=== PATIENT | female | born 1985 | race Caucasian/White ===

== ENCOUNTER 2024-02-05 15:43 | Emergency (ER) | payer OTHER, SELFPAY ==
[2024-02-05 15:43] VITALS: BP 148/101; BP 151/99; PULSE 67; PULSE 79; RESP 14; RESP 18; TEMP 36.3; O2SAT 100; BMI 37.8
--- NOTE | 2024-02-05 16:06 | EX.ED.UPPERE ---
HPI History of Present Illness Chief Complaint: Upper Extremity Injury Informant: patient Occured/Mechanism Mechanism/Context: Yes fall Onset/Context/Timing Onset: Today Context: Sudden Onset Timing: Continuous Quality of Pain: Aching Location: Left wrist Current Severity: Moderate Maximum Severity: Severe Worsened by: Moving Relieved by: Remaining still Associated Symptoms Associated Symptoms: Positive for Loss of Funtion; Negative for Parasthesia or Weakness Narrative Narrative: Patient states she was getting onto a stepstool to get something out of a high pantry/cabinet, she went to get down and the stool gave way, causing her to fall and injure her left wrist. She denies any other injuries. [id number]. [facility] Medical History (Updated 02/05/24 @ 17:[address] Fredrick Luke MD) Arm injury Distal radius fracture Medical History no medical history no medical history Home Medications sertraline 100 mg tablet 100 mg PO DAILY 02/05/24 [History Last Taken 02/05/24] Allergy/AdvReac Type Severity Reaction Status Date / Time No Known Allergies Allergy Verified 02/05/24 15:44 Social History Smoking Status: Never smoker ROS ROS ED Constitutional Constitutional ED: Denies chills or fever(s) Musculoskeletal Musculoskeletal: Reports extremity pain; Denies neck pain Integumentary Denies Abrasions, rash or wounds Neurologic Neurologic: Denies paresthesias or weakness EXAM Physical Exam Const Vital Signs: 02/05/24 15:43 02/05/24 15:43 Temperature 97.3 F L Temperature Source Temporal Pulse Rate 67 79 Respiratory Rate 14 18 Blood Pressure 148/101 H 151/99 H Blood Pressure Mean 116 116 Pulse Ox 100 100 Oxygen Delivery Method Room Air Room Air Positive well nourished and well developed General Appearance ED: well developed and NAD Neck full ROM and supple Back/Spine normal ROM and normal to inspection Extremity Extremity Narrative: Deformity left wrist, limited range of motion and diffusely tender. It is close there is no lacerations or bleeding. Able to wiggle fingers. All other joints nontender and full range. Neuro oriented x3, no focal motor deficits and no sensory deficits noted Sensorium / Orientation: alert Psych mental status grossly normal and thought process normal Skin no wounds Rashes: no rashes MDM MDM MDM Narrative Medical decision making narrative: See the procedure note, 3 view x-ray of the left wrist on my interpretation shows a grossly displaced closed distal radius fracture as well as an ulnar styloid fracture. There is no dislocation of the carpus. Perform hematoma block after giving the patient an oxycodone orally, and manual reduction. 2 view postreduction x-ray on my interpretation shows improvement. Given that it was not completely reduced, it is impacted and very difficult to move manually, I discussed with Dr. Tim with orthopedics, he reviewed the films and agrees that this is adequate enough to splint and follow-up in the office after the weekend. Management Discussion w/another healthcare provider: [employer] ([facility]yo orthopedicaleshia) Procedures Upper Extremity Splints Upper Extremity Splint: Orthoglass and - (AP short arm left upper extremity) Splint Fabrication: Fabricated Location: Left (Neurovascularly intact distally after placement, except for some paresthesias in median nerve distribution. Therefore splint manipulated so that patient is in mild volar flexion.) Other Procedures Procedure(s): Hematoma block: After sterile prep with isopropanol, dorsal approach over the palpable fracture left distal radius, and after informed consent, introduced a small wheal with a 25-gauge needle under the skin followed by prepping again and introducing 6 cc of plain 1% lidocaine into the fracture site after withdrawing some amount of blood. When there started to be back pressure on the syringe I withdrew the needle, performed some of the close reduction procedure, and then reprepped and introduced the rest of the 4 cc of plain 1% lidocaine when there was less pressure on the fracture site to create better anesthesia. Tolerated well no complications. Total plain 1% lidocaine 10 cc. Closed reduction left displaced distal radius fracture: After good anesthesia, and informed consent, manual reduction performed while distracting the hand, recreating the extension injury, and attempting to push the distal piece up over onto the top of the radial shaft. There was definitely good feedback with the bone clicking that there is improvement. Postreduction films show improvement but there is still about a 30 or 35 degree angulation. Tolerated well no complications. Neurovascular intact distally within the limits of the exam given anesthesia, there is some paresthesias in the fingers but good motor function and brisk cap refill. Discharge Plan Triage Chief Complaint: Upper Extremity Injury ED Provider: Fredrick Luke Dx/Rx/DC Orders Clinical Impression: Fall from stool, Closed traumatic displaced fracture of distal end of left radius Instructions: ED Colles Fracture, Reduction Required, ED Splint Care, Fiberglass Prescriptions: No Action sertraline 100 mg tablet 100 mg PO DAILY Primary Care Provider: Bailey Storm Referrals: Bailey Storm DO [Primary Care Provider] - Rodolfo Tim MD [Med Staff - Active Staff] - 02/08/24 (call for appt time) Disposition Disposition: Home, Self Care
--- NOTE | 2024-02-05 16:20 | RAD_ITS ---
STUDY: XR Wrist Min 3 Views REASON FOR EXAM: Female, 39 years old. injury with deformity TECHNIQUE: XR Wrist 3 Views LEFT COMPARISON: None FINDINGS: Fracture of the ulnar styloid. Comminuted and impacted distal radial fracture. There is articular extension. There is dorsal displacement of the distal fracture fragment. There are no acute findings of the radiocarpal articulation. Normal distal radioulnar articulation. Normal carpal bones. Normal carpal articulations. There are no acute findings of the carpometacarpal articulation of the thumb. Normal second through fifth carpometacarpal articulations. There are no acute findings of the visualized metacarpal bones. There is non-specific soft tissue swelling. RAD/Wrist min 3 Views IMPRESSION: Fracture of the ulnar styloid. Comminuted and impacted distal radial fracture. There is articular extension. There is dorsal displacement of the distal fracture fragment. Electronically Signed: Aman Oliver MD at 16:44 EDT ,
[2024-02-05] MEDS: Oxycodone/Apap 5/325 Tablet PO (16:24)
--- NOTE | 2024-02-05 16:39 | ED.RN ---
Physician has 1% lidocaine for procedure
[2024-02-05 16:43] VITALS: BP 130/68; PULSE 67; RESP 18; TEMP 36.7; O2SAT 100
[2024-02-05 17:00] VITALS: BP 135/90; PULSE 78; RESP 14; O2SAT 98
--- NOTE | 2024-02-05 17:00 | RAD_ITS ---
STUDY: XR Wrist 2 Views REASON FOR EXAM: Female, 39 years old. postreduction -- port TECHNIQUE: XR Wrist 2 Views LEFT COMPARISON: Study done earlier today. FINDINGS: Fracture of the ulnar styloid. Better apposition of the ulnar styloid fracture. Comminuted and impacted distal radial fracture. There is articular extension. There is dorsal displacement of the distal fracture fragment which is improved. There are no acute findings of the radiocarpal articulation. Normal distal radioulnar articulation. Normal carpal bones. Normal carpal articulations. There are no acute findings of the carpometacarpal articulation of the thumb. Normal second through fifth carpometacarpal articulations. There are no acute findings of the visualized metacarpal bones.The soft tissue structures are unremarkable. There is non-specific soft tissue swelling. RAD/Wrist 2 Views IMPRESSION: Fracture of the ulnar styloid. Comminuted and impacted distal radial fracture. There has been improvement in the dorsal displacement of the distal radial fracture since the reduction. Also, there is been improvement in the alignment of the ulnar styloid fracture. Electronically Signed: Aman Oliver MD at 17:26 EDT Reading Location ID and State: [facility] / [place] , Service support ,
--- NOTE | 2024-02-05 17:11 | CON.PCM.OR_ITS ---
HPI Consult Data Date of Consult: 02/05/24 HPI Narrative HPI Narrative: DANISH ZUNIGA, is a 39 F who presents with a distal radius fracture. Dr. Chanel did a closed reduction. No median nerve symptoms. [facility] Medical History (Updated 02/05/24 @ 17:17 by Rodolfo Tim MD) Arm injury Distal radius fracture Medical History no medical history Home Medications sertraline 100 mg tablet 100 mg PO DAILY 02/05/24 [History Last Taken 02/05/24] Allergy/AdvReac Type Severity Reaction Status Date / Time No Known Allergies Allergy Verified 02/05/24 15:44 Social History Smoking Status: Never smoker Vital Signs Vital Signs Vital Signs: 02/05/24 15:43 02/05/24 15:43 02/05/24 16:43 Temperature 97.3 F L 98.1 F Temperature Source Temporal Oral Pulse Rate 67 79 67 Respiratory Rate 14 18 18 Blood Pressure 148/101 H 151/99 H 130/68 H Blood Pressure Mean 116 116 88 Pulse Ox 100 100 100 Oxygen Delivery Method Room Air Room Air Room Air 02/05/24 17:00 Temperature Temperature Source Pulse Rate 78 Respiratory Rate 14 Blood Pressure 135/90 H Blood Pressure Mean 105 Pulse Ox 98 Oxygen Delivery Method Room Air Weight Weight: 241 lb 13.553 oz Body Mass Index (BMI) 37.8 Imaging Radiology Impression Wrist X-Ray 02/05/24 16:20 IMPRESSION: Fracture of the ulnar styloid. Comminuted and impacted distal radial fracture. There is articular extension. There is dorsal displacement of the distal fracture fragment. Electronically Signed: Aman Oliver MD at 16:44 EDT Reading Location ID and State: [facility] / [place] , Service support , Assessment & Plan Assessment/Plan (1) Distal radius fracture: PLAN: 39 yr F with a distal radius fracture, reasonable reduction but would still benefit from ORIF. Asked to see the patient Thursday morning, splint for now. Monitor for median nerve symptoms.
[2024-02-05 18:00] VITALS: BP 138/70; PULSE 76; PULSE 78; RESP 16; TEMP 36.6; O2SAT 98; O2SAT 99
== END 2024-02-05 18:04 | disposition home or self-care (01) ==
PROVIDERS: Emergency Provider Emergency Medicine; PCP Family Medicine; Visit Provider Emergency Medicine
DX: S52.502A Unspecified fracture of the lower end of left radius, initial encounter for closed fracture (principal); W19.XXXA Unspecified fall, initial encounter; Z79.899 Other long term (current) drug therapy
CPT/HCPCS: 25605; 73100; 73110; 99282

== ENCOUNTER 2024-02-10 10:27 | Day surgery (SDC) | payer SELFPAY, OTHER ==
[2024-02-10] VITALS (8 sets, daily range): BP systolic 92–122; BP diastolic 45–81; PULSE 7–75; RESP 16; TEMP 36.5–36.6; O2SAT 92–99; BMI 39.6
[2024-02-10] MEDS: Lactated Ringers 1,000 ML 15 ML IV (11:01)
[2024-02-10 11:03] LABS: Internal QC Validated? YES +Cl - CLEAR BKGD; Pregnancy, Urine Negative Negative
--- NOTE | 2024-02-10 12:04 | HP.PCM_ITS ---
HPI - General HPI Narrative DANISH ZUNIGA, is a 39 F who presents for left distal radius ORIF. no changes to h and p. left wrist marked. ok to proceed. had a block. rab and post op instructions, narcotic counselling done. MR#: [id number] Acct: [id number] Name: DANISH ZUNIGA Rep #: [id number] : 1985 Provider: Dr. Rodolfo Tim MD Age/Sex: 39/F Location[place] [facility] [place] Status: Signed Intake Vital Signs 02/04/2415:43 Height 5 ft 7 in Intake Visit Reasons: LEFT WRIST Allergies No Known Allergies Allergy (Verified 02/05/24 15:44) [facility] Medical History (Updated 02/05/24 @ 17:[address] Fredrick Luke MD) Arm injury Distal radius fracture Social History Smoking Status: Never smoker HPI LEFT WRIST Details: This documentation accurately reflects the service provided and the decisions made by me, Dr. Rodolfo Tim MD 02/08/24 0815. Part of today?s visit was documented by [ ], acting as scribe. DANISH ZUNIGA is a 39 year old F here today for L DRF. Fell off step stool 3 days ago. RHD. no prior injuries. Here with Marin her . Ortho Exam General General: Yes no acute distress Neurologic: Yes alert and Yes oriented x3 Psychologic: Yes reasonable and appropriate Right Wrist/Hand Skin/Wound: Yes Swelling (moderate) and Yes Ecchymosis Left Wrist/Hand Skin/Wound: Yes CDI, Yes Swelling (moderate), Yes Ecchymosis, Yes nail intact, Yes capillary refill normal and No erythema Motor: EPL: 4, FDP-2: 4, 1st Dorsal Interosseous: 4 and APB: 4 Sensation: Radial: I, Ulnar: I and Median: I WRIST: TTP at fracture site Supplemental Info [facility] Imaging Services [address] [place] [address] Wrist 2 Views MR#: [id number] Acct: [id number] Name: DANISH ZUNIGA Rep #: [id number] : 1985 F 39 From: Aman Oliver MD PCP: Dr. Bailey Storm, DO Status: REG ER Study: Wrist 2 Views Date of Exam: 02/05/24 Exam# [id number] Ordering Dr: Fredrick Luke MD STUDY: XR Wrist 2 Views REASON FOR EXAM: Female, 39 years old. postreduction -- port TECHNIQUE: XR Wrist 2 Views LEFT COMPARISON: Study done earlier today. FINDINGS: Fracture of the ulnar styloid. Better apposition of the ulnar styloid fracture. Comminuted and impacted distal radial fracture. There is articular extension. There is dorsal displacement of the distal fracture fragment which is improved. There are no acute findings of the radiocarpal articulation. Normal distal radioulnar articulation. Normal carpal bones. Normal carpal articulations. There are no acute findings of the carpometacarpal articulation of the thumb. Normal second through fifth carpometacarpal articulations. There are no acute findings of the visualized metacarpal bones.The soft tissue structures are unremarkable. There is non-specific soft tissue swelling. RAD/Wrist 2 Views IMPRESSION: Fracture of the ulnar styloid. Comminuted and impacted distal radial fracture. There has been improvement in the dorsal displacement of the distal radial fracture since the reduction. Also, there is been improvement in the alignment of the ulnar styloid fracture. Electronically Signed: Aman Oliver MD at 17:26 EDT Reading Location ID and State: [facility] / [place] , Service support , Coding Level of Care Code Off vis,new,level 3 Diagnoses Closed traumatic displaced fracture of distal end of left radius S52.502A Assessment and Plan Assessment and Plan (1) Closed traumatic displaced fracture of distal end of left radius: Status: Acute Plan: 39 year old F here today for L DRF. Still residual dorsal displacement and angulation, would recommend surgical correction in the form of ORIF volar plating. Other option is non op, doing nothing, or a cast. Cast treatment or other forms of nonoperative management there is likely resulted in a high degree of wrist malalignment instability arthritis and other problems about the wrist. Surgery does have its own set of risks and complications. I explained that to the patient and her they would like to go ahead with surgery in the form of left distal radius open reduction internal fixation. I will try to get this done this week. The patient has no medical problems and will not require clearance. I put the patient back in the splint for now recommend rest ice and elevation for pain and swelling control. Pros and cons risks and benefits were discussed with the patient including but not limited to infection, pain, stiffness, bleeding, damage to surrounding str uctures, neurovascular injury, recurrence or retear, failure or wear of hardware or fixation, instability, fracture, deep vein thrombosis and pulmonary embolism, anesthetic risks, , patient dissatisfaction, need for further surgery and other risks. Patient understood and wished to proceed with surgery, and signed the informed consent documentation. [facility] Medical History Arm injury Breast feeding status of mother Depression Distal radius fracture Non-smoker Wears dentures Wears glasses Home Medications sertraline 100 mg tablet 100 mg PO DAILY 02/05/24 [History Last Taken 02/05/24] folic acid 1 mg tablet 1 mg PO DAILY 02/09/24 [History Last Taken Unknown] vit no.95-ferrous fumarate 28 mg-folic acid 800 mcg tablet () 1 tab PO DAILY 02/09/24 [History Last Taken Unknown] Allergy/AdvReac Type Severity Reaction Status Date / Time No Known Allergies Allergy Verified 02/10/24 10:55 Surgical History No history of previous surgery Social History Smoking Status: Never smoker Vital Signs Vital Signs Vital Signs: 02/10/24 10:56 02/10/24 10:56 02/10/24 11:11 Temperature 97.9 F Temperature Source Temporal Pulse Rate 7 L 73 Respiratory Rate 16 Respiratory Pattern Normal Blood Pressure 122/81 H Blood Pressure Mean 94 Blood Pressure Source Monitor Blood Pressure Position Semi-Fowlers Blood Pressure Location Left Arm Pulse Ox 99 Oxygen Delivery Method Room Air Weight Weight: 238 lb 1.588 oz Body Mass Index (BMI) 39.6 Results Lab / Micro Data Labs: Laboratory Results - last 24 hr 02/10/24 10:43: Urine Test Negative
[2024-02-10] MEDS: Cefazolin 2 GM in 0.9% Normal Saline (100mL Bag) 100 ML IV (12:11)
--- NOTE | 2024-02-10 12:20 | RAD_ITS ---
PROCEDURE: ORIF of the distal left radial fracture. DATE OF EXAMINATION: February 10, 2024. INDICATION: Female, 39 years old. Distal left radial fracture. FLUOROSCOPY TIME (if supplied): (61.7 seconds) minutes/seconds. 1.15 mGy. 4 images were obtained. RAD/Wrist 2 Views IMPRESSION: Intraoperative imaging provided for open reduction and internal fixation of the distal radial fracture. There is good alignment. Electronically Signed: Hieu Cedeno MD at 14:32 EDT ,
--- NOTE | 2024-02-10 13:18 | PCM.OPRPT ---
Problems Associated Problem List Diagnoses (1) Closed traumatic displaced fracture of distal end of left radius: Report of Operation Date of Procedure: 02/10/24 Pre-Operative Diagnosis: L distal radius and ulna fracture Post-Operative Diagnosis: same Surgery/Procedure Performed:: L distal radius ORIF Surgeon: Rodolfo Tim Type of Anesthesia: Block,Regional and General Anesthesiologist: Jose Francisco Nicholas Estimated Blood Loss (mL): 25 Description of Procedure: Patient brought the operating theater. Placed supine on the table. General anesthesia induced. 2 g IV Ancef administered prior to start of procedure. Hand table to the patient's left side. Upper extremity prepped and draped in the usual sterile fashion with chlorhexidine-based prep solution allowing over 3 minutes drying time prior to draping. Tourniquet on the patient's left upper extremity appropriately padded. SCDs on the legs. Preoperative timeout performed to confirm the site patient and the surgery. Began by exsanguinating limb inflated the tourniquet to 250 mmHg. Made a standard incision on the volar side longitudinally overlying FCR carried the dissection down through skin and subcutaneous tissue to meticulous hemostasis. Incised the fascia as well as the subs sheath of the FCR tendon retracted this radially. Retracted FPL ulnarly. Protected the radial artery retracted it radially. Cauterize any crossing vessel. Made an L-shaped incision in pronator quadratus retracted this ulnarly. Identified the fracture site cleared away any interposed fracture hematoma and periosteum. Aligned the fracture site and achieved preliminary reduction using direct manipulation. Selected a Arthrex precontoured volar locking plate narrow. I appropriately position the plate on both AP and lateral radiographs. I placed a proximal 3.5 mm cortical screw in the oblong hole. This compressed the plate down nicely. I used a longitudinal traction and direct manipulation of the fracture to get an anatomic reduction. There was 1 small area of comminution on the radial side that had to be removed. I inserted 2.4 mm locking cortical screws distally and these measured 20 mm long, 4 in total including the styloid screw. I ensured these were not penetrating into the joint. I then filled the other 2 holes proximally using 3.5 mm cortical screws. I took final radiographs AP lateral as well as 30 degree oblique lateral joint view and a dorsal oblique view to ensure no screw penetration into the dorsal aspect. Case terminated tourniquet let down meticulous hemostasis achieved. Wound thoroughly irrigated. Subcutaneous tissue closed with 2-0 Vicryl suture and skin with 3-0 Monocryl. Skin cleaned with wet dry dressing followed application of Steri-Strips Adaptic 4 x 4 gauze sterile cast padding and a volar fiberglass splint overwrapped with loosely wrapped Elmo wrap. Patient woken up from a general anesthetic transferred off the operating table and taken postanesthetic care unit in stable condition. All sponge needle instrument counts were correct. cpt 68408, [id number] Complications none Admit VTE Documentation VTE Present on Admission: No VTE Mechan Device Prophylaxis: SCD's Reason prophylaxis not ordered:: Treatment Not Indicated Procedures Musculoskeletal 20xxx-29xxx: Other Procedure See Report
--- NOTE | 2024-02-10 13:32 | DCINST_ITS ---
Discharge Instructions Diet Discharge Diet: No restrictions Activity Ice area for (Minutes): 10 Weight Bearing Status: No weight bearing Keep extremity elevated above heart level: Operative Extremity Dressing / Incision Call your doctor if your incision/area has: Continuous Slow Oozing, Sudden Increased Bleeding, Increased Pain/ Swelling, Increased Redness, Foul Smelling Discharge and Swelling at the incision site Change Dressing in: leave in place till F/U Follow Up Care Please Follow Up With: Rodolfo Tim MD When: 2 days Test Results: Test results from this visit will be discussed in further detail at your follow- up appointment, if applicable. Discharge Plan Admission Attending Provider: Rodolfo Tim Primary Care Provider: Bailey Storm Discharge Orders/Prescriptions Prescriptions: New oxycodone-acetaminophen [Endocet] 5-325 mg tablet 1 tab PO Q4H MDD 6 PRN (Reason: pain) 5 Days Qty: 20 0RF No Action sertraline 100 mg tablet 100 mg PO DAILY PNV cmb#95-ferrous fumarate-FA [] 28 mg iron- 800 mcg tablet 1 tab PO DAILY folic acid 1 mg tablet 1 mg PO DAILY Referrals / Follow Up: Bailey Storm DO [Primary Care Provider] - Rodolfo Tim MD [Med Staff - Active Staff] - Disposition Disposition (needs filled in before D/C Order can be placed): Home, Self Care
== END 2024-02-10 14:27 | disposition home or self-care (01) ==
LOC: SDC 10:28 → AC 10:30
PROVIDERS: Anesthesiology; PCP Family Medicine; Referring Provider Orthopaedic Surgery Sports Medicine; Visit Provider Orthopaedic Surgery Sports Medicine
PROC: (CPT 25608; principal; 2024-02-10 11:40)
DX: S52.502A Unspecified fracture of the lower end of left radius, initial encounter for closed fracture (principal); S52.612A Displaced fracture of left ulna styloid process, initial encounter for closed fracture; W08.XXXA Fall from other furniture, initial encounter; F32.A Depression, unspecified; Z79.899 Other long term (current) drug therapy
CPT/HCPCS: 25608; 64417; 01830; 73100; 76000; 81025; C1713; J7120; J2405